=== PATIENT | female | born 2005 | race Caucasian/White ===

== ENCOUNTER 2024-09-24 19:26 | Emergency (ER) | payer BC, SELFPAY ==
--- NOTE | 2024-09-24 19:35 | ED_ITS ---
HPI - Headache General Chief Complaint: General Medical Stated Complaint: left side head pain/left side jaw pain and stiff Time Seen by Provider: 09/24/24 20:01 Source: patient Mode of arrival: ambulatory Limitations: no limitations History of Present Illness ED Provider: Lydia Romo PA-C HPI Narrative: 18-year-old female with a history of anxiety and ADHD, scoliosis without need for bracing or surgical intervention, presents with left-sided headache that has been intermittent for months. Gradual onset over time. Pain left-sided, somewhat retro-orbital. Associated phonophobia, photophobia, dizziness and nausea at times. Associated left-sided neck pain worse with movement, was precipitated after she fell asleep on a long plane ride, tilting her head to the left on her boyfriend shoulder. Denies sinus pain pressure, other cough cold symptoms, nasal congestion or fever. Patient states she has used rggh-dzb-gormsgy remedies with brief relief of symptoms, the headache returns. Patient also states jaw pain, and that she needs her wisdom teeth removed. Related Data Previous Rx's ?Medication ?Instructions ?Recorded [id number] 3.5 4 drp otic (ears) Q8H 5 days #10 mL 01/30/ mg/mL-10,000 unit/mL-1 % ear solution Allergies Allergy/AdvReac Type Severity Reaction Status Date / Time amoxicillin Allergy Unknown Unknown Verified 09/24/24 19:36 cefdinir (From Omnicef) Allergy Unknown Unknown Verified 09/24/24 19:36 clavulanic acid (From Allergy Unknown unknown Verified 09/24/24 19:36 Augmentin) Review of Systems 2 Review of Systems: Yes all other systems are reviewed and are negative Constitutional: Constitutional: Denies fatigue, Denies fever(s) and Reports headache(s) Eyes: Eyes: Reports requires corrective lenses and Reports photophobia ENT: Reports dental pain, Reports dizziness, Reports facial pain, Reports headache(s), Denies nasal congestion, Reports neck pain, Denies sinus pain and Denies sinus pressure Cardiovascular: Cardiovascular: Denies chest pain and Denies dyspnea Respiratory: Respiratory: Denies cough and Denies dyspnea Gastrointestinal: Gastrointestinal: Denies abdominal pain, Reports nausea and Denies vomiting Musculoskeletal: Musculoskeletal: Denies back pain, Denies myalgias and Reports neck pain Neurologic: Reports dizziness and Reports headache(s) Endocrine: Endocrine: Denies fatigue PMF Past Medical History Attestation statement: The following information was validated with the patient. Social History Social History Smoked in Last 30 Days: No Advance Directives: No Advance Directives Information Provided: Yes Patient : No Physical Exam 2 Vital Signs: Vital Signs: Last Vital Signs Temp 98 F 09/24/24 19:36 Pulse 90 09/24/24 19:36 Resp 16 09/24/24 19:36 BP 127/72 09/24/24 19:36 Pulse Ox 99 09/24/24 19:36 O2 Del Method Room Air 09/24/24 19:36 BMI result Body Mass Index 31.0 Const: Other: Alert well-appearing Orientation/consciousness: patient oriented x3 Eyes: Direct Ophthalmoscopy: photophobia Neck: Neck: Yes full ROM and Yes no meningeal signs Resp: Effort & Inspection: normal respiratory effort Cardio: Other: Normal peripheral perfusion Skin: Other: Warm dry no rash Neuro: General: patient oriented x3, gait normal, no meningeal signs, no focal motor deficits and CN's II-XI intact bilaterally Psych: Other: Cooperative Course Course Course Narrative: This is a RME preformed in triage by Latia Forde PA-C. Date: 09/24/24, time 744 pm. Patient presents with headache left side. Gradual onset over the past month been taking 400 mg of ibuprofen while at work today comes back. Past medical history for scoliosis would 40 degree angle no bracing or surgery this contributes to paresthesias and chronic back pain. She is also endorsing left- sided neck pain worse with movement it started with falling asleep on a plane with her head tilted on her boyfriend when she woke up she felt sharp shooting pain in the area that lasted for up to an hour and then gradually went away with no intervention but ever since that time she has felt like she had a headache. Denies any ear pain but does feel some pain in her drawn to worse with chewing and mastication no tinnitus or hearing loss. She does not feel dizzy or lightheaded. She denies any fevers nausea vomiting or diarrhea no shortness of breath or abdominal discomfort. She has seen her PCP before in the past meds is as brushed off as what she perceived as anxiety and it was never referred to a neurologist. Patient took 400 mg of Motrin prior to arrival has made no difference. Work UP/ PE: Basic labs and would likely benefit from a migraine cocktail. She has tenderness to palpation over her left upper trapezius no midline tenderness step-offs or deformities negative nexus criteria nonfocal neuro Will defer full ROS and PE to treating provider. Patient will continued to be monitored in the interim. Reevaluation(s) Reevaluation #1: Headache much improved Time: 21:56 Medications Administered Discontinued Medications Generic Name Dose Route Start Last Admin Trade Name Duq PRN Reason Stop Dose Admin Dexamethasone Sodium Phosphate 10 mg 09/24/24 20:18 09/24/24 20:41 Dexamethasone Sod Phosphate 10 Mg/Ml Vial IVPUSH 09/24/24 20:19 10 mg ONCE ONE Administration Diphenhydramine HCl 25 mg 09/24/24 20:18 09/24/24 20:40 Diphenhydramine Hcl 50 Mg/Ml Vial IVPUSH 09/24/24 20:19 25 mg ONCE ONE Administration Sodium Chloride 1,000 mls @ 999 mls/hr 09/24/24 20:30 09/24/24 20:40 Ns IV 09/24/24 21:30 999 mls/hr .Q1H1M MELISSA Administration Ketorolac Tromethamine 15 mg 09/24/24 20:18 09/24/24 20:40 Ketorolac Tromethamine 15 Mg/Ml Vial IVPUSH 09/24/24 20:19 15 mg ONCE ONE Administration Prochlorperazine Edisylate 10 mg 09/24/24 20:18 09/24/24 20:40 Prochlorperazine Edisylate 10 Mg/2 Ml Vial IVPUSH 09/24/24 20:19 10 mg ONCE ONE Administration Medical Decision Making Medical Decision Making MDM Narrative: 18-year-old female with a history of anxiety and ADHD, scoliosis without need for bracing or surgical intervention, presents with left-sided headache that has been intermittent for months. Gradual onset over time. Pain left-sided, somewhat retro-orbital. Associated phonophobia, photophobia, dizziness and nausea at times. Associated left-sided neck pain worse with movement, was precipitated after she fell asleep on a long plane ride, tilting her head to the left on her boyfriend shoulder. At that time she also noted excessive tearing from the left eye that has since resolved. Denies sinus pain pressure, other cough cold symptoms, nasal congestion or fever. Patient states she has used kiiz-gfg-jddhuav remedies with brief relief of symptoms, the headache returns. Patient also states jaw pain, and that she needs her wisdom teeth removed. Problem: Anxiety, scoliosis, need for wisdom teeth to be removed History: Per patient I have considered the following differential diagnoses: Migraine, cluster headache, tension headache, intracranial hemorrhage, meningitis Plan: I do believe the fact that she needs her wisdom teeth removed is the likely trigger for her ongoing headaches. In regard to the neck pain, she has a stiff neck secondary to prolonged lateral positioning. She has no meningeal signs on exam. She also has no infectious signs symptoms or a fever to suggest meningitis. This is not an intracranial hemorrhage, the patient is not on a blood thinner, she sustained no head trauma, she has had intermittent symptoms for months, CT of the brain not warranted. She does have elements of migraine versus cluster versus tension type headache. We will give migraine cocktail and reassess. I have independently reviewed the following tests: Labs: No leukocytosis, not anemic, no electrolyte abnormality Lab Data 09/24/24 19:54 09/24/24 19:54 Labs: Lab Results 09/24/24 Range/Units 19:54 WBC 9.2 (4.8-10.8) X10*3/uL RBC 5.17 (4.20-5.50) X10*6/uL Hgb 12.3 (12.0-16.0) g/dl Hct 38.1 (37.0-47.0) % MCV 73.7 L (80.0-98.0) fL MCH 23.8 L (27.0-33.0) pg MCHC 32.3 (31.0-35.0) g/dl RDW 15.0 (11.0-16.0) % Plt Count 321 (160-400) X10*3/uL MPV 9.7 (9.4-12.3) fL Immature Gran % (Auto) 0.2 (0.0-0.4) % Neut % (Auto) 63.9 (45-73) % Lymph % (Auto) 29.1 (20-40) % [place] % (Auto) 5.1 (2-11) % Eos % (Auto) 1.3 (0-4) % Baso % (Auto) 0.4 (0-2) % Lymph # (Auto) 2.7 (1.2-4.9) X10*3/uL [place] # (Auto) 0.5 (0.1-1.2) X10*3/uL Eos # (Auto) 0.1 (0.0-0.4) X10*3/uL Baso # (Auto) 0.0 (0.0-0.2) X10*3/uL Abs Immat Gran (auto) 0.02 (0.00-0.03) X10*3/uL Absolute Neuts (auto) 5.9 (2.0-8.3) x10*3/uL Absolute Nucleated RBC 0.000 (0.0-0.012) X10*3/uL Nucleated RBC % (auto) 0.0 (0.0-0.2) /100WBC Sodium 139 (135-145) mmol/L Potassium 4.5 (3.3-5.1) mmol/L Chloride 105 (96-108) mmol/L Carbon Dioxide 26 (22-29) mmol/L Anion Gap 13 (12-20) BUN 10 (9-16) mg/dL Creatinine 0.78 (0.5-1.4) mg/dL Estim Creat Clear Calc 110.4 Estimated GFR > 60 Random Glucose 96 (60-115) mg/dL Calcium 9.5 (8.4-10.2) mg/dL C-Reactive Protein 1.21 H (< or = 0.50) mg/dL Discharge Plan Discharge Clinical Impression: Migraine Patient Disposition: Home, Self-Care Instructions: Migraine Headache (ED) Additional Instructions: You were treated for a migraine type headache. See home care instructions. All of your screening labs were normal. I would keep your follow up appointment with your primary care provider. If your headaches continue to be frequent, you need to discuss the need to be prescribed a medication to help prevent headaches. They may also refer you to a neurologist, to determine exactly what form of headache you have. Prescriptions: No Action rmpyhauu-[id number]-HE 3.5-10,000-1 mg/mL-unit/mL-% solution 4 drp otic (ears) Q8H 5 Days Qty: 10 0RF Print Language: Nepali
[2024-09-24 19:36] VITALS: BP 127/72; PULSE 90; RESP 16; TEMP 36.6; O2SAT 99; BMI 31.0
[2024-09-24 19:59] LABS: MANUAL DIFF FLAG NO
[2024-09-24 20:01] LABS: Hematocrit 38.1 % (37.0-47.0); Hemoglobin 12.3 g/dl (12.0-16.0); Imm Gran Abs Auto 0.02 X10*3/uL (0.00-0.03); Imm Gran Pct Auto 0.2 % (0.0-0.4); Lymphocytes Absolute Auto 2.7 X10*3/uL (1.2-4.9); Mean Corpuscular HGB Conc 32.3 g/dl (31.0-35.0); Mean Corpuscular Hemoglobin 23.8 pg (27.0-33.0); Mean Corpuscular Volume 73.7 fL (80.0-98.0); NRBC Abs Auto 0.000 X10*3/uL (0.0-0.012); NRBC Pct Auto 0.0 /100WBC (0.0-0.2); Platelet Count 321 X10*3/uL (160-400); Red Blood Count 5.17 X10*6/uL (4.20-5.50); White Blood Count 9.2 X10*3/uL (4.8-10.8)
[2024-09-24 20:12] LABS: Anion Gap 13 (12-20); Blood Urea Nitrogen 10 mg/dL (9-16); Calcium 9.5 mg/dL (8.4-10.2); Carbon Dioxide 26 mmol/L (22-29); Chloride 105 mmol/L (96-108); Creatinine Clr Calc Pharmacy 110.4; Estimated Glomerular Filt Rate > 60; Potassium 4.5 mmol/L (3.3-5.1); Sodium 139 mmol/L (135-145)
[2024-09-24 22:17] VITALS: BP 109/64; PULSE 75; RESP 18; TEMP 36.8; O2SAT 97
[2024-09-24 22:22] VITALS: BP 109/64; PULSE 75; RESP 18; TEMP 36.8; O2SAT 97
== END 2024-09-24 22:23 | disposition home or self-care (01) ==
PROVIDERS: Physician Assistant Medical; Emergency Provider Emergency Medicine; PCP Nurse Practitioner Family
DX: G43.909 Migraine, unspecified, not intractable, without status migrainosus (principal); R11.0 Nausea; R42 Dizziness and giddiness; M54.2 Cervicalgia; M41.9 Scoliosis, unspecified
CPT/HCPCS: 36415; 80048; 85025; 86140; 96361; 96374; 96375; 99284; J0737; J1100; J1200; J1885